=== PATIENT | male | born 1995 | race Caucasian/White ===

== ENCOUNTER 2018-01-18 23:22 | Emergency (ER) | payer OTHER ==
[~2018-01-18] VITALS: Ht 180.3 cm; Wt 88.0 kg
[~2018-01-18 23:22] MED LIST: AMOXICILLIN500 M1 PO; ATIVAN1 MG PO; BENTYL 20 MG TA20 M1 PO; HYDROCODON-ACE1 EAC7 PO; IBUPROFEN 600600 M1 PO; NOHOMEMEDICATIONS; SENNA PO
[2018-01-19] MEDS ORDERED: HYDROXYZINE HCL25 M1 PO (00:25)
[2018-01-19 00:41] VITALS: BP 127/74
== END 2018-01-19 00:43 | disposition home or self-care (01) ==
LOC: M.ERS 23:22
DX: F41.9 Anxiety disorder, unspecified (principal); J45.909 Unspecified asthma, uncomplicated; F17.210 Nicotine dependence, cigarettes, uncomplicated